=== PATIENT | male | born 1975 | race African-American/Black ===

== ENCOUNTER 2017-03-14 19:03 | Emergency (ER) | payer OTHER ==
[2017-03-14 19:16] VITALS: BP 131/77; PULSE 61; TEMP 98.6; BMI 32.6
[2017-03-14] MEDS ORDERED: KETOROLAC TROMETHAMINE 60 MG/2 ML VIAL IM ONE (20:05)
[2017-03-14] MEDS ORDERED: KETOROLAC TROMETHAMINE 60 MG/2 ML VIAL ONE (20:07)
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
== END 2017-03-14 20:36 | disposition home or self-care (01) ==
LOC: JERFT 19:03
PROC: 3E0233Z Introduction of Anti-inflammatory into Muscle, Percutaneous Approach (ICD-10-PCS; principal; 2017-03-14)
DX: M54.42 Lumbago with sciatica, left side (principal); V09.9XXA Pedestrian injured in unspecified transport accident, initial encounter; Y93.89 Activity, other specified; Y92.9 Unspecified place or not applicable
CPT/HCPCS: 72100-TC; 99281-25